=== PATIENT | female | born 1955 | race Caucasian/White ===

== ENCOUNTER 2022-03-14 11:18 | Observation (INO) | payer MEDICARE ==
[~2022-03-14] VITALS: Ht 162.6 cm; Wt 52.3 kg
[2022-03-14] MEDS ORDERED: ACETAMINOPHEN 325 MG TAB PO STA (11:29)
[2022-03-14] MEDS ORDERED: DEXAMETHASONE SOD PHOS INJ 4 MG/ML SDV IV PRN ×2 (11:30→20:00)
[2022-03-14] MEDS ORDERED: FUROSEMIDE INJ 10 MG/ML 4 ML VIAL IV PRN (11:30)
[2022-03-14] MEDS ORDERED: SODIUM CHLORIDE FLUSH 10 ML SYR INJ PRN (11:30)
[2022-03-14] MEDS ORDERED: DIPHENHYDRAMINE HCL INJ 50 MG/ML VIAL IV PRN ×2 (11:30→20:00)
[2022-03-14] MEDS ORDERED: SODIUM CHLORIDE 0.9% 250ML 250 ML IV ONE (11:30)
[2022-03-14] MEDS ORDERED: FAMOTIDINE 20 MG/2 ML VIAL IV PRN ×2 (11:30→20:00)
[2022-03-14] MEDS ORDERED: ATORVASTATIN CA20 MG PO (12:09)
[2022-03-14] MEDS ORDERED: FOLIC ACID0.4 MG PO (12:09)
[2022-03-14] MEDS ORDERED: SODIUM BICARBO650 MG PO (12:09)
[2022-03-14] MEDS ORDERED: DEPAKOTE ER250 MG PO (12:09)
[2022-03-14] MEDS ORDERED: AMLODIPINE BESY10 MG PO (12:09)
[2022-03-14] MEDS ORDERED: TEGRETOL200 MG PO (12:09)
[2022-03-14] MEDS ORDERED: HYDROCODON-ACE1 EA11 (12:09)
[2022-03-14] MEDS ORDERED: SANDOSTATIN0.1 MG/ML INJ (12:09)
[2022-03-14] MEDS ORDERED: VITAMIN B-121000 MCG PO (12:09)
[2022-03-14] MEDS ORDERED: FEROSUL325 MG PO (12:09)
[2022-03-14] MEDS ORDERED: OXYCONTIN10 MG PO (12:09)
[2022-03-14] MEDS ORDERED: [UNRECOGNIZED DRUG - OTHER] (12:09)
[2022-03-14] MEDS ORDERED: POTASSIUM CHLO20 ME1 PO (12:09)
[2022-03-14] MEDS ORDERED: ASPIRIN EC81 MG PO (12:09)
[2022-03-14] MEDS ORDERED: METOPROLOL TART50 MG PO (12:09)
[2022-03-14] MEDS ORDERED: MIRTAZAPINE15 MG PO (12:09)
[2022-03-14] MEDS ORDERED: MULTI-VITAMIN1 EACH PO (12:09)
[2022-03-14] MEDS ORDERED: FUROSEMIDE INJ 10 MG/ML 2 ML VIAL IV ONE (12:30)
[2022-03-14] MEDS ORDERED: ACETAMINOPHEN 325 MG TAB PO PRN (13:45)
[2022-03-14] MEDS ORDERED: ONDANSETRON HCL INJ 2MG/ML 2ML 2 MG/ML VIAL IV PRN (13:45)
[2022-03-14] MEDS ORDERED: HYDROCODONE/APAP 5MG-325MG TAB PO PRN (14:00)
[2022-03-14 14:38] VITALS: BP 146/50
[2022-03-14 14:57] VITALS: BP 146/50
[2022-03-14 15:23] VITALS: BP 146/50
[2022-03-14] MEDS: DIVALPROEX SODIUM 250 MG TAB...DR PO SCH ×2 (17:09→21:34)
[2022-03-14] MEDS: METOPROLOL TARTRATE 50 MG TAB PO SCH (17:09)
[2022-03-14 17:23] LABS: HEMOGLOBIN 5.7 g/dL (12.0-16.0)
[2022-03-14] MEDS ORDERED: SODIUM CHLORIDE 0.9% 250ML 250 ML ONE (19:59)
[2022-03-14 20:00] VITALS: BP 136/50
[2022-03-14] MEDS ORDERED: CLONIDINE HCL 0.1 MG TAB PO PRN (20:00)
[2022-03-14] MEDS ORDERED: ATORVASTATIN 40 MG TAB PO SCH (21:00)
[2022-03-14] MEDS ORDERED: MIRTAZAPINE 15 MG TAB PO SCH (21:00)
[2022-03-14] MEDS: CARBAMAZEPINE 200 MG TAB PO SCH (21:38)
[2022-03-15] VITALS: BP 126/74
[2022-03-15 04:00] VITALS: BP 162/62
[2022-03-15 06:01] LABS: BASOPHILS % 0.5 % (0.0-1.0); EOSINOPHILS % 0.3 % (0.0-6.0); HEMATOCRIT 30.7 % (34.2-44.1); LYMPHOCYTES # (AUTO) 0.8 (1.0-3.2); LYMPHOCYTES % 20.3 % (18.0-39.1); MEAN CORPUSCULAR HEMOGLOBIN 32.4 pg (28-32); MEAN CORPUSCULAR HGB CONC 32.6 g/dL (31-35); MEAN CORPUSCULAR VOLUME 99.4 fL (81-99); MONOCYTES # (AUTO) 0.3 (0.2-0.8); MONOCYTES % 7.6 % (4.4-11.3); NEUTROPHILS # (AUTO) 2.3 (2.1-6.9); NEUTROPHILS % 63.2 % (38.7-80.0); PLATELET COUNT 59 x10e3/uL (140-360); RED BLOOD COUNT 3.09 x10e6/uL (3.6-5.1); RED CELL DISTRIBUTION WIDTH 17.3 % (11.7-14.4)
[2022-03-15 07:51] VITALS: BP 136/63
[2022-03-15 08:00] VITALS: BP 136/63
[2022-03-15] MEDS ORDERED: FERROUS SULFATE 325 MG TAB PO SCH (09:00)
[2022-03-15] MEDS ORDERED: NON-FORMULARY MEDICATION (Folic Acid* 0.4 MG) PO SCH (09:00)
[2022-03-15] MEDS ORDERED: FOLIC ACID 1 MG TAB PO SCH (09:00)
[2022-03-15] MEDS ORDERED: MULTIVITAMINS/MINERALS TAB PO SCH ×2 (09:00)
[2022-03-15] MEDS ORDERED: ASPIRIN 81 MG ENTERIC COATED PO SCH (09:00)
[2022-03-15] MEDS ORDERED: AMLODIPINE BESYLATE 10 MG TAB PO SCH (09:00)
[2022-03-15] MEDS ORDERED: CYANOCOBALAMIN 1,000 MCG TAB PO SCH (09:00)
[2022-03-15] MEDS: DIVALPROEX SODIUM 250 MG TAB...DR PO SCH (09:21)
[2022-03-15] MEDS: METOPROLOL TARTRATE 50 MG TAB PO SCH (09:22)
[2022-03-15] MEDS: CARBAMAZEPINE 200 MG TAB PO SCH (09:23)
[2022-03-15 09:33] LABS: CALCIUM 7.9 mg/dL (8.4-10.2); CREATININE, SERUM 3.27 mg/dL (0.57-1.11)
[2022-03-15] MEDS ORDERED: HEPARIN 500 UNITS/5ML MDV INJ ONE (10:15)
== END 2022-03-15 11:08 | disposition home or self-care (01) ==
LOC: FSED 11:25 → ERHOLD 11:35 → MED/SURG3 14:24
PROVIDERS: ADMIT Internal Medicine; ATTEND Internal Medicine
DX: N18.5 Chronic kidney disease, stage 5 (principal); D63.1 Anemia in chronic kidney disease; E87.5 Hyperkalemia; D69.6 Thrombocytopenia, unspecified; I25.10 Atherosclerotic heart disease of native coronary artery without angina pectoris; I12.0 Hypertensive chronic kidney disease with stage 5 chronic kidney disease or end stage renal disease; C7A.8 Other malignant neuroendocrine tumors; E78.00 Pure hypercholesterolemia, unspecified; G40.909 Epilepsy, unspecified, not intractable, without status epilepticus; Z88.1 Allergy status to other antibiotic agents; Z88.2 Allergy status to sulfonamides; Z95.1 Presence of aortocoronary bypass graft; Z83.3 Family history of diabetes mellitus; Z82.49 Family history of ischemic heart disease and other diseases of the circulatory system; Z84.1 Family history of disorders of kidney and ureter; Z20.822 Contact with and (suspected) exposure to COVID-19
CPT/HCPCS: 36415 ×2; 36430; 80048 ×2; 85014; 85018; 85025 ×2; 86850; 86900; 86920; 99284; G0378 ×2; J1100; J1200; J1940; J7050; P9016; U0002